=== PATIENT | male | born 1940 | race Caucasian/White ===

== ENCOUNTER 2018-05-11 08:27 | Day surgery (SDC) | payer OTHER ==
--- OUTSIDE RECORDS SUMMARY | 2018-05-11 08:30 | XMS REPORT ---
:1940 [facility] Address [address] [place] [address] Dr. Patel. [address] [place] [address] Care Team Providers Name Role Phone Unavailable Unavailable Unavailable Payers Payer Name Policy Type Policy Number Effective Date Expiration Date Problems This patient has no known problems. Allergies, Adverse Reactions, Alerts Allergy Allergy Status Severity Reaction(s) Onset Inactive Treating Comments Name Type Date Date Clinician No Known DA Active U 2018-02 Allergies -09 00:00:0 0 Medications This patient has no known medications.
[2018-05-11] MEDS ORDERED: CYCLOPENTOLATE 1% OPTH 2 ML ONE (08:49)
[2018-05-11] MEDS ORDERED: NA CHLORIDE 0.9% 500 ML ONE (08:50)
[2018-05-11] MEDS ORDERED: PHENYLEPHRINE 10% OPTH 5ML ONE (08:50)
[2018-05-11] MEDS ORDERED: CYCLOPENTOLATE 1% OPTH 2 ML OPTH ONE ×2 (09:00→09:05)
[2018-05-11] MEDS ORDERED: PHENYLEPHRINE 10% OPTH 5ML OPTH ONE ×2 (09:00→09:05)
[2018-05-11] MEDS: TETRACAINE HCL 0.5% 2ML OPTH ONE ×2 (09:22→09:54)
[2018-05-11] MEDS: BUPIVACAINE 0.25% PF 10 ML VIAL ONE ×2 (09:22→09:55)
[2018-05-11] MEDS: LIDOCAINE 2% MPF 5 ML VIAL ONE ×2 (09:23→09:55)
[2018-05-11] MEDS ORDERED: PROPOFOL 200 MG/20 ML VIAL IV ONE (09:28)
[2018-05-11] MEDS ORDERED: NS 0.9% VIAL 10 ML ONE (09:56)
[2018-05-11] MEDS ORDERED: BALANCED SALT IRRIG PLAIN 500 ML BTL IRR ONE (09:56)
[2018-05-11] MEDS ORDERED: EPINEPHRINE/PF 1 MG/ML AMP ONE (09:56)
[2018-05-11] MEDS ORDERED: MOXIFLOXACIN HCL 10 DROPS/ML **OR USE OPTH ONE (09:57)
[2018-05-11] MEDS ORDERED: DUOVISC 1 KIT OPTH ONE (09:57)
[2018-05-11] MEDS ORDERED: FENTANYL CITR 100 MCG/2 ML ONE (10:12)
--- NOTE | 2018-05-11 10:43 | P.BOP ---
Preoperative diagnosis: Nuclear sclerotic cataract OS Postoperative diagnosis: Same Primary procedure: Phacoemulsification with IOL OS Estimated blood loss: None Anesthesia: Local (Subtenon's infusion with anesthesia for cataract surgery) Complications: None Implants: SN60WF +20.0 Transferred to: Other (Day surgery) Condition: Good
--- NOTE | 2018-05-11 21:24 | OP ---
Date of Procedure: 05/11/2018 Surgeon: Allie Saravia MD Anesthesiologist: Saw Lynch CRNA and Boyd Samuels MD. Preoperative Diagnosis: Nuclear sclerotic cataract, left eye. Operation Performed: Phacoemulsification with intraocular lens implant, left eye. Anesthesia: Per cataract surgery. Complications: None. Description Of Procedure: In day surgery, the patient was prepped with Betadine and draped. A conju nctival incision was made in the inferior nasal quadrant with Judy scissors. A sub-Tenon block c onsisting of a 1:1 mixture of 2% Xylocaine and 0.25% bupivacaine was placed through the conjunctival incision with a blunt cannula. A Honan balloon was placed over the eye and the patient was transferr ed to the operating room. In the operating room the patient was prepped and draped in the usual sterile fashion for ophthalmic surgery. A lid speculum was placed in the left eye. Two paracentesis sites were made superiorly and inferiorly in the limbal cornea. Viscoat was placed in the anterior chamber and a crescent blade wa s used to make a corneal groove and tunnel, and a keratome was used to enter the anterior chamber. P rovisc was placed in the anterior chamber and a 360 degree capsulotomy was performed with a cystitome . The lens was hydrodissected with BSS and rotated freely. The lens was removed with a stop and cho p technique. 26.08 phaco CDE was used to remove the lens. Residual cortex was removed with the irri gation and aspiration. Provisc was placed in the capsular bag. A SN60WF +20.0 diopter lens was plac ed in the capsular bag without complications. Irrigation and aspiration were used to remove residual viscoelastic. The paracentesis sites were hydrated with BSS. The wound and paracentesis sites were inspected and found to be watertight. Vigamox 0.07 cc was placed intracamerally at the end of the p rocedure. The eye was irrigated with balanced salt solution. The eye was patched with a soft cotton patch and Wong metal shield. The patient was returned to day surgery in good condition. Comments: The surgery was performed at the head of the bed rather than temporally. 1:5000 epinephri ne was placed in the anterior chamber prior to Viscoat. Discharge Instructions: Mr. Albrecht is discharged to home in good condition and is to follow up w madison Saravia in the morning. NICKOLAS/PALMA Voice ID: [id number] Report ID: [id number]
== END 2018-05-11 11:08 | disposition home or self-care (01) ==
LOC: OR 08:27
PROVIDERS: ATTEND Ophthalmology Retina Specialist
PROC: 08RK3JZ Replacement of Left Lens with Synthetic Substitute, Percutaneous Approach (ICD-10-PCS; principal; 2018-05-11 09:50)
DX: H25.12 Age-related nuclear cataract, left eye (principal); I10 Essential (primary) hypertension; E78.00 Pure hypercholesterolemia, unspecified; I25.10 Atherosclerotic heart disease of native coronary artery without angina pectoris; Z95.1 Presence of aortocoronary bypass graft; Z87.891 Personal history of nicotine dependence; Z83.518 Family history of other specified eye disorder; Z82.49 Family history of ischemic heart disease and other diseases of the circulatory system; Z83.3 Family history of diabetes mellitus
CPT/HCPCS: 66984; J0171; J2704; J3010; V2630

== ENCOUNTER 2021-09-08 14:17 | Emergency (ER) | payer OTHER ==
--- OUTSIDE RECORDS SUMMARY | 2021-09-08 14:19 | XMS REPORT | Continuity of Care Document ---
:1940 Author Organization [facility] t Address [address] [place] [address] Dr. Patel. [address] [place] [address] Care Team Providers Name Role Phone Unavailable Unavailable Unavailable Payers Payer Name Policy Type Policy Number Effective Date Expiration Date S ource Problems This patient has no known problems. Allergies, Adverse Reactions, Alerts Allergy Allergy Status Severity Reaction(s) Onset Inactive Treating Comm ents Source Name Type Date Date Clinician No Known DA Active U 2017-04 [facility] Allergie 04-22 [facility] 00:00: [address] Medications This patient has no known medications. Procedures This patient has no known procedures. Results This patient has no known results.
[2021-09-08] MEDS ORDERED: FENTANYL CITR 100 MCG/2 ML ONE (15:12)
[2021-09-08 15:31] LABS: Absolute Lymphocytes (CBC) 0.8 K/uL (0.7-4.9); Hematocrit 26.4 % (39.6-49.0); Lymphocytes % 7.2 % (15.3-44.8); MPV 7.5 fL (7.6-11.3); RBC Red Blood Cell Count 2.84 M/uL (4.33-5.43)
[2021-09-08 15:48] LABS: Potassium 4.7 mmol/L (3.5-5.1)
--- NOTE | 2021-09-08 16:31 | RAD REPORT ---
EXAM DESCRIPTION: CT - Head C Spine Cap Wo Con - 09/08/2021 4:08 pm TECHNIQUE: Computed axial tomography of the head and cervical spine was obtained. Coronal and sagitt al reconstruction was performed Computed axial tomography of the chest, abdomen and pelvis was obtained. Contrast was not requested. All CT scans are performed using dose optimization technique as appropriate and may include automated exposure control or mA/KV adjustment according to patient size. CLINICAL HISTORY: Head and neck injury with chest and abdominal pain status post fall COMPARISON: none FINDINGS: An intracranial bleed is not seen. The ventricles are normal in caliber. An extra-axial fluid collection is not noted. . Fluid within the sinuses/mastoids is not seen. A cervical fracture is not seen. No dislocation is noted. The evaluation of mediastinum, franco, vessels, solid organs and bowel are limited secondary to the lac k of contrast administration. A mediastinal hematoma is not noted. A pleural effusion is not seen. A lung contusion is not present. 9 millimeter partially calcified left lower lobe nodule The liver,spleen, pancreas, adrenals,kidneys and bladder do not demonstrate a traumatic injury. 3.4 centimeter abdominal aortic aneurysm. Mildly to moderately displaced left humeral neck fracture IMPRESSION: 1. No acute intracranial abnormality is seen. 2. A cervical fracture is not visualized. If the patient continues have symptoms to suggest intracran ial/spinal cord pathology MRI be recommended 3. Mildly to moderately displaced left humeral neck fracture 4. A 3.4 centimeter abdominal aortic aneurysm 5. 9 millimeter partially calcified left lung nodule likely benign. A followup CT chest in 6 months recommended for re-evaluation
--- NOTE | 2021-09-08 16:38 | RAD REPORT ---
EXAM DESCRIPTION: RAD - Humerus Left - 09/08/2021 3:59 pm CLINICAL HISTORY: Left arm pain status post fall FINDINGS: Mildly to moderately displaced oblique fracture humeral neck No dislocation
--- NOTE | 2021-09-08 16:38 | RAD REPORT ---
EXAM DESCRIPTION: RAD - Clavicle Left - 09/08/2021 3:59 pm CLINICAL HISTORY: Shoulder pain FINDINGS: No fracture dislocation seen involving the left clavicle
--- NOTE | 2021-09-08 17:57 | EDPHYS ---
Physician Documentation [facility] Name: Rosendo Albrecht Age: 81 yrs Sex: Male : 1940 Arrival Date: 09/08/2021 Time: 14:21 Bed 12 Private MD: ED Physician Garrett Godoy HPI: 09/08 15:10 This 81 yrs old Male presents to ER via Ambulatory with complaints of Fall Injury, Arm cp Injury. 15:10 Details of fall: The patient fell from an upright position, while walking, and struck a cp grass-covered surface. Onset: The symptoms/episode began/occurred just prior to arrival. 15:10 Associated injuries: The patient sustained left upper arm, decreased range of motion, cp obvious fracture, painful injury. 15:10 Severity of symptoms: in the emergency department the symptoms are unchanged, despite cp home interventions. Historical: - Allergies: 14:30 No Known Allergies; ld1 - Home Meds: 14:30 None [Active]; ld1 - PMHx: 14:30 Heart bypass; ld1 - Immunization history:: Adult Immunizations up to date, Client reports having NOT received the Covid vaccine. - Social history:: Smoking status: Patient denies any tobacco usage or history of. Patient/guardian denies using alcohol. ROS: 15:15 Constitutional: Negative for body aches, chills, fever, poor PO intake. cp 15:15 Neck: Negative for pain with movement, pain at rest, stiffness. cp 15:15 Cardiovascular: Negative for chest pain, edema, palpitations. cp 15:15 Respiratory: Negative for cough, shortness of breath, wheezing. 15:15 Abdomen/GI: Negative for abdominal pain, nausea, vomiting, and diarrhea, constipation, black/tarry stool, rectal bleeding. 15:15 Eyes: Negative for injury, pain, redness, and discharge. cp 15:15 Back: Negative for radiated pain. 15:15 MS/extremity: Positive for injury or acute deformity, decreased range of motion, pain, of the left upper arm, Negative for paresthesias. 15:15 Neuro: Negative for altered mental status, dizziness, headache, loss of consciousness, syncope, weakness. 15:15 All other systems are negative. Exam: 15:20 Constitutional: The patient appears in no acute distress, alert, awake, cp non-diaphoretic, non-toxic, well developed, frail. 15:20 Head/Face: Normocephalic, atraumatic. cp 15:20 Eyes: Periorbital structures: appear normal, Pupils: equal, round, and reactive to light and accomodation, Extraocular movements: intact throughout, Conjunctiva: normal, no exudate, no injection, Sclera: no appreciated abnormality, Lids and lashes: appear normal, bilaterally. 15:20 ENT: External ear(s): are unremarkable, Nose: is normal, Mouth: Lips: moist, Oral mucosa: moist, Posterior pharynx: Airway: no evidence of obstruction, patent. 15:20 Neck: C-spine: vertebral tenderness, is not appreciated, crepitus, is not appreciated, ROM/movement: is normal, is supple, without pain, no range of motions limitations. 15:20 Chest/axilla: Inspection: normal, Palpation: is normal, no crepitus, no tenderness. 15:20 Cardiovascular: Rate: normal, Rhythm: regular, Edema: is not appreciated, JVD: is not appreciated. 15:20 Respiratory: the patient does not display signs of respiratory distress, Respirations: normal, no use of accessory muscles, no retractions, labored breathing, is not present, Breath sounds: are clear throughout, no decreased breath sounds, no stridor, no wheezing. 15:20 Abdomen/GI: Inspection: abdomen appears normal, Palpation: abdomen is soft and non-tender, in all quadrants, rebound tenderness, is not appreciated, involuntary guarding, is not appreciated. 15:20 Back: pain, is absent, ROM is normal, vertebral tenderness, is not appreciated. 15:20 Musculoskeletal/extremity: Extremities: grossly normal except: noted in the left upper arm: decreased ROM, deformity, pain, ROM: limited passive range of motion due to pain, in the left upper arm, Pulses: noted to be 2+ in the right radial artery and left radial artery, the left upper arm Severe pain noted. 15:20 Neuro: Orientation: to person, place \T\ time. Mentation: is normal, Motor: moves all fours, strength is normal. Vital Signs: 14:29 BP 163 / 65; Pulse 66; Resp 18; Temp 98.6(TE); Pulse Ox 100% on R/A; Weight 54.43 kg; ld1 Height 5 ft. 6 in. (167.64 cm); Pain 8/10; 17:56 BP 167 / 65; Pulse 65; Resp 15; Pulse Ox 100% ; jl7 14:29 Body Mass Index 19.37 (54.43 kg, 167.64 cm) ld1 Procedures: 18:00 Splinting: Splint applied to left upper arm using sling, applied by nurse. Examined by cp me, post splint application: neurovascular intact, Patient tolerated well. MDM: 17:28 Patient medically screened. cp 17:55 Data reviewed: vital signs, nurses notes, lab test result(s), radiologic studies, CT cp scan, plain films. 17:55 Test interpretation: by ED physician or midlevel provider: plain radiologic studies. cp Counseling: I had a detailed discussion with the patient and/or guardian regarding: the historical points, exam findings, and any diagnostic results supporting the discharge/admit diagnosis, the presence of at least one elevated blood pressure reading (>120/80) during this emergency department visit, lab results, radiology results, the need for outpatient follow up, for definitive care, a family practitioner, a orthopedic surgeon, to return to the emergency department if symptoms worsen or persist or if there are any questions or concerns that arise at home. Response to treatment: the patient's symptoms have markedly improved after treatment, and as a result, I will discharge patient. 17:55 Special discussion: Aortic aneurysm, elevated creatine, anemia and need for f/u with family physician. 09/08 15:07 Order name: Basic Metabolic Panel; Complete Time: 16:52 09/08 16:52 Interpretation: Normal except: NA 130; GLUC 163; BUN 40; CRE 1.92; GFR 35. 09/08 15:07 Order name: CBC with Diff; Complete Time: 16:52 09/08 16:53 Interpretation: Normal except: WBC 11.0; RBC 2.84; HGB 9.0; HCT 26.4; MCV 92.9; MPV cp 7.5; ILEANA% 87.1; LYM% 7.2; NEUT A 9.5. 09/08 14:33 Order name: XRAY Clavicle LEFT; Complete Time: 16:52 1 09/08 16:53 Interpretation: Report reviewed. 09/08 15:07 Order name: Type And Screen 09/08 17:06 Order name: Antibody Identification [facility] 09/08 15:07 Order name: Labs collected and sent; Complete Time: 15:19 09/08 15:07 Order name: XRAY Humerus LEFT; Complete Time: 16:52 09/08 16:53 Interpretation: Report reviewed. 09/08 15:55 Order name: Head C Spine Cap Wo Con; Complete Time: 16:52 EDAZ 09/08 16:56 Interpretation: Report reviewed. 09/08 17:35 Order name: Sling; Complete Time: 17:56 09/08 17:36 Order name: Misc. Order: ambulate patient; Complete Time: 17:56 cp Administered Medications: 15:18 Drug: fentaNYL (PF) 25 mcg Route: IVP; Site: right forearm; ld1 17:56 Follow up: Response: No adverse reaction; Pain is decreased jl7 Disposition: 09/09 07:40 Co-signature as Attending Physician, Garrett Godoy MD I agree with the assessment and kdr plan of care. Disposition Summary: 09/08/21 17:56 Discharge Ordered Location: Home cp Problem: new cp Symptoms: have improved cp Condition: Stable cp Diagnosis - 2-part displaced fracture of surgical neck of left humerus cp - Fall on same level from slipping, tripping and stumbling without subsequent cp striking against object Followup: cp - With: Todd Barbosa MD - When: 2 - 3 days - Reason: left humerus fracture Discharge Instructions: - Discharge Summary Sheet cp - Fall Prevention in the Home, Adult cp - Humerus Fracture Treated With Immobilization cp Forms: - Medication Reconciliation Form cp - Thank You Letter cp - Antibiotic Education cp - Prescription Opioid Use cp Prescriptions: - Tylenol-Codeine #3 300 mg-30 mg Oral - take 2 tablet by ORAL route every 8-10 hours; 20 tablet; Refills: 0, Product cp Selection Permitted Signatures: Dispatcher [employer] [facility] Garrett Godoy MD MD kdr Page, Corey, PA PA cp Kate Stevens, RN RN ld1 Madelaine Loredo RN jl7 Corrections: (The following items were deleted from the chart) 09/08 14:31 14:30 PMHx: None; ld1 ld1 15:16 14:33 Shoulder Left 2 View+RAD.RAD.BRZ ordered. EDMS EDMS 15:55 15:11 Head C Spine CAP W Con+CT.RAD.BRZ ordered. EDMS EDMS
--- NOTE | 2021-09-08 17:57 | ER ---
Nurse's Notes [facility] Name: Rosendo Albrecht Age: 81 yrs Sex: Male : 1940 Arrival Date: 09/08/2021 Time: 14:21 Bed 12 Private MD: Diagnosis: 2-part displaced fracture of surgical neck of left humerus;Fall on same level from slipping, tripping and stumbling without subsequent striking against object Presentation: 09/08 14:29 Chief complaint: Patient states: 1230 today I was outside in the backyard, I tripped ld1 and fell in a hole. Pt fell on left side - c/o left shoulder pain, left upper arm pain. Denies LOC, no blood thinners. Did not hit head. Coronavirus screen: At this time, the client does not indicate any symptoms associated with coronavirus-19. Ebola Screen: No symptoms or risks identified at this time. Initial Sepsis Screen: Does the patient meet any 2 criteria? No. Patient's initial sepsis screen is negative. Does the patient have a suspected source of infection? No. Patient's initial sepsis screen is negative. Risk Assessment: Do you want to hurt yourself or someone else? Patient reports no desire to harm self or others. Onset of symptoms was September 08, 2021. 14:29 Method Of Arrival: Ambulatory ld1 14:29 Acuity: DILIA 3 ld1 Triage Assessment: 14:30 General: Appears in no apparent distress. comfortable, Behavior is calm, cooperative, ld1 appropriate for age. Pain: Complains of pain in anterior aspect of left shoulder Pain does not radiate. Pain currently is 8 out of 10 on a pain scale. EENT: No signs and/or symptoms were reported regarding the EENT system. Neuro: Level of Consciousness is awake, alert, obeys commands, Oriented to person, place, time, situation. Cardiovascular: Capillary refill < 3 seconds Patient's skin is warm and dry. Respiratory: Airway is patent Respiratory effort is even, unlabored. Musculoskeletal: Swelling present in anterior aspect of left shoulder. Historical: - Allergies: 14:30 No Known Allergies; ld1 - Home Meds: 14:30 None [Active]; ld1 - PMHx: 14:30 Heart bypass; ld1 - Immunization history:: Adult Immunizations up to date, Client reports having NOT received the Covid vaccine. - Social history:: Smoking status: Patient denies any tobacco usage or history of. Patient/guardian denies using alcohol. Screenin:56 Abuse screen: Denies threats or abuse. Denies injuries from another. Nutritional jl7 screening: No deficits noted. Tuberculosis screening: No symptoms or risk factors identified. Fall Risk Fall in past 12 months (25 points). IV access (20 points). Total Mitchell Fall Scale indicates Low Risk Score (25-44 pts). Vital Signs: 14:29 BP 163 / 65; Pulse 66; Resp 18; Temp 98.6(TE); Pulse Ox 100% on R/A; Weight 54.43 kg; ld1 Height 5 ft. 6 in. (167.64 cm); Pain 8/10; 17:56 BP 167 / 65; Pulse 65; Resp 15; Pulse Ox 100% ; jl7 14:29 Body Mass Index 19.37 (54.43 kg, 167.64 cm) ld1 ED Course: 14:21 Patient arrived in ED. ja2 14:21 Milton Jacob PA is PHCP. cp 14:21 Garrett Godoy MD is Attending Physician. cp 14:30 Triage completed. ld1 14:30 Arm band placed on right wrist. ld1 15:19 Type And Screen Sent. ld1 15:19 CBC with Diff Sent. ld1 15:19 Basic Metabolic Panel Sent. ld1 15:19 Inserted saline lock: 20 gauge in right forearm, using aseptic technique. Blood ld1 collected. 15:58 XRAY Clavicle LEFT In Process Unspecified. EDMS 15:58 XRAY Humerus LEFT In Process Unspecified. EDMS 16:10 Head C Spine Cap Wo Con In Process Unspecified. EDMS 17:53 Todd Barbosa MD is Referral Physician. cp 17:56 Madelaine Loredo RN is Primary Nurse. jl7 17:56 Patient has correct armband on for positive identification. jl7 17:56 No provider procedures requiring assistance completed. IV discontinued, intact, jl7 bleeding controlled, No redness/swelling at site. Pressure dressing applied. Administered Medications: 15:18 Drug: fentaNYL (PF) 25 mcg Route: IVP; Site: right forearm; ld1 17:56 Follow up: Response: No adverse reaction; Pain is decreased jl7 Medication: 17:56 VIS not applicable for this client. jl7 Outcome: 17:56 Discharge ordered by . cp 17:56 Discharged to home via wheelchair, with family. jl7 17:56 Condition: stable 17:56 Discharge instructions given to patient, family, Instructed on discharge instructions, follow up and referral plans. medication usage, Demonstrated understanding of instructions, follow-up care, medications, Prescriptions given X 1. 18:14 Patient left the ED. jl7 Signatures: Dispatcher [employer] EDMS Milton Jacob PA PA cp Leal, Jahala RN RN jl7 Kate Stevens RN RN ld1 Macy Jackson Corrections: (The following items were deleted from the chart) 14:31 14:30 PMHx: None; ld1 ld1
[2021-09-08 18:26] VITALS: BP 167/65; TEMP 98.6; O2SAT 100
== END 2021-09-08 18:14 | disposition home or self-care (01) ==
LOC: ER 14:17
DX: S42.222A 2-part displaced fracture of surgical neck of left humerus, initial encounter for closed fracture (principal); W01.0XXA Fall on same level from slipping, tripping and stumbling without subsequent striking against object, initial encounter
CPT/HCPCS: 85025; 80048; 36415; 86900; 86850; 86870; 86901; 70450; 71250; 72125; 73060; 73000; 96374; 99284; J3010

== ENCOUNTER 2021-12-23 19:25 | Emergency (ER) | payer OTHER ==
--- OUTSIDE RECORDS SUMMARY | 2021-12-23 19:28 | XMS REPORT | Continuity of Care Document ---
:1940 Author Organization [facility] t Address [address] [place] [address] Care Team Providers Name Role Phone Steve Gibson Attending Clinician Unavailable Payers Payer Name Policy Type Policy Number Effective Date Expiration Date S ource Problems This patient has no known problems. Allergies, Adverse Reactions, Alerts Allergy Allergy Status Severity Reaction(s) Onset Inactive Treating Comm ents Source Name Type Date Date Clinician No Known DA Active U 2017-04 [facility] Allergie 04-22 [facility] 00:00: [address] Medications This patient has no known medications. Procedures This patient has no known procedures. Encounters Start End Encounter Admission Attending Care Care Encounter Source Date/Time Date/Time Type Type Clinicians Facility Department ID 2021-11-13 Outpatient Gibson, [facility] [id number] Common 10:31:01 Steve [facility] 2021-10-05 Outpatient Gibson [facility] [id number] Common 08:20:03 Steve [facility] 2021-10-04 Outpatient Gibson, [facility] [id number] Common 14:20:02 Steve [facility] 2021-09-17 Outpatient Gibson, [facility] [id number] Common 09:18:03 Steve [facility] 2021-09-14 Outpatient Arthur [facility] [id number] Common 07:49:01 [facility] [id number] [facility] Results This patient has no known results.
[2021-12-23 21:14] LABS: SARS-CoV-2 Antigen Rapid Res Negative (Negative)
--- NOTE | 2021-12-23 21:33 | RAD REPORT ---
EXAM DESCRIPTION: CT - Head C Spine Cap Wo Con - 12/23/2021 9:15 pm CLINICAL HISTORY: Trauma, head and neck injury. Chest, abdomen and pelvis pain. fall COMPARISON: Head C Spine Cap Wo Con dated 09/08/2021 TECHNIQUE: CT head without contrast. CT cervical spine without contrast with coronal and sagittal reformatted images. CT chest, abdomen and pelvis without contrast with coronal and sagittal reformatted images of the spi ne. All CT scans are performed using dose optimization technique as appropriate and may include automated exposure control or mA/KV adjustment according to patient size. FINDINGS: CT HEAD WITHOUT CONTRAST: There is a large left-sided acute on chronic subdural hematoma measuring 19 mm in thickness. There is moderate to large right posterior acute on chronic subdural hematoma measuring 21 mm in thickness. N o midline shift is present. The paranasal sinuses and mastoids are clear. The calvarium is intact. CT CERVICAL SPINE WITHOUT CONTRAST: No fracture or subluxation. The prevertebral soft tissues are normal in thickness.Bilateral carotid atherosclerosis. CT CHEST, ABDOMEN, PELVIS WITHOUT CONTRAST: NOTE: Lack of contrast is a significant limitation in the assessment of trauma related findings. Spec ifically, solid organ, vascular and bowel evaluation is significantly limited. 7 mm nodule is seen the superior segment left lower lobe.The lungs are clear of acute infiltrate or p ulmonary contusion.No pneumothorax or pericardial/pleural fluid. No evidence of intra-abdominal visceral injury, free fluid or free air is seen within the above detai led limitations. 3.6 cm infrarenal abdominal aortic aneurysm. No concerning pelvic findings. Diffuse osteopenia is noted. Mild osteoporotic L1 compression deformity is present, likely subacute i n timeframe. Estimated vertebral body loss is 15%. 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 No midline shift is present. Subacute osteoporotic L1 compression deformity without significant canal compromise. 7 mm nodule superior segment left lower lobe. Recommend follow-up CT chest assessment in 6 months.
[2021-12-23] MEDS ORDERED: NA CHLORIDE 0.9% 100 ML ONE (21:47)
[2021-12-23] MEDS ORDERED: LEVETIRACETAM 500 MG/5 ML VIAL IV ONE (21:47)
--- NOTE | 2021-12-23 21:52 | RAD REPORT ---
EXAM DESCRIPTION: RAD - Chest Single View - 12/23/2021 9:43 pm CLINICAL HISTORY: fall Chest pain. COMPARISON: No comparisons FINDINGS: Portable technique limits examination quality. The lungs are emphysematous but grossly clear. The heart is normal in size. No displaced fractures.St ernotomy wires present. IMPRESSION: COPD.
[2021-12-23 21:56] LABS: Absolute Lymphocytes (CBC) 0.9 K/uL (0.7-4.9); Hematocrit 29.1 % (39.6-49.0); Lymphocytes % 8.7 % (15.3-44.8); MCV 95.4 fL (80-100); MPV 7.2 fL (7.6-11.3); RBC Red Blood Cell Count 3.05 M/uL (4.33-5.43)
--- NOTE | 2021-12-23 22:01 | EDPHYS ---
Physician Documentation [facility] Name: Rosendo Albrecht Age: 81 yrs Sex: Male : 1940 Arrival Date: 12/23/2021 Time: 19:30 Bed 4 Private MD: ED Physician Ethan Smith HPI: 12/23 21:22 This 81 yrs old Male presents to ER via Wheelchair with complaints of Fall Injury. snw 21:22 Details of fall: The patient fell from an upright position, while walking. Onset: The snw symptoms/episode began/occurred acutely, and became worse. Associated injuries: The patient sustained injury to the head, contusion. Severity of symptoms: At their worst the symptoms were moderate, earlier today. pt has been falling frequently. Bumped top of head 3-4 days ago, fell x 3 yesterday. Today pt has not been able to ambulate. The patient has been recently seen by a physician: Dr. Rutherford (janitor cleaner) a janitor cleaner, in the office, in placed on Losartan, Atorvastatin, and another medication that family cannot name. Historical: - Allergies: 19:42 No Known Allergies; ha1 - Immunization history:: Adult Immunizations up to date. - Social history:: Smoking status: Patient/guardian denies using tobacco, but has a distant history of tobacco abuse. - Immunization history: Last tetanus immunization: unknown. ROS: 19:59 Eyes: Negative for injury, pain, redness, and discharge, ENT: Negative for injury, snw pain, and discharge, Neck: Negative for injury, pain, and swelling. 19:59 Respiratory: Negative for shortness of breath, cough, wheezing, and pleuritic chest pain, Abdomen/GI: Negative for abdominal pain, nausea, vomiting, diarrhea, and constipation, Back: Negative for injury and pain, : Negative for injury, bleeding, discharge, and swelling, MS/Extremity: Negative for injury and deformity, Skin: Negative for injury, rash, and discoloration, Psych: Negative for depression, anxiety, suicide ideation, homicidal ideation, and hallucinations. 19:59 Constitutional: Positive for increased falls. 19:59 Cardiovascular: Positive for family states pt c/o chest pain yesterday. 19:59 Neuro: Positive for gait disturbance, weakness, cannot ambulate. Exam: 19:55 Head/Face: Normocephalic, atraumatic. snw 19:55 Neck: Trachea midline, no thyromegaly or masses palpated, and no cervical lymphadenopathy. Supple, full range of motion without nuchal rigidity, or vertebral point tenderness. No Meningismus. Chest/axilla: Normal chest wall appearance and motion. Nontender with no deformity. No lesions are appreciated. 19:55 Cardiovascular: Regular rate and rhythm with a normal S1 and S2. No gallops, murmurs, or rubs. Normal PMI, no JVD. No pulse deficits. Respiratory: Lungs have equal breath sounds bilaterally, clear to auscultation and percussion. No rales, rhonchi or wheezes noted. No increased work of breathing, no retractions or nasal flaring. Abdomen/GI: Soft, non-tender, with normal bowel sounds. No distension or tympany. No guarding or rebound. No evidence of tenderness throughout. Back: severe kyphosis Skin: Warm, dry with normal turgor. Normal color with no rashes, no lesions, and no evidence of cellulitis. MS/ Extremity: Pulses equal, no cyanosis. Neurovascular intact. Full, normal range of motion. 19:55 Constitutional: The patient appears awake, emaciated, frail, lethargic, listless, pale. 19:55 Eyes: Conjunctiva: pale, bilaterally. 19:55 Neuro: Gait: needs assistance, Triage nurse and I used belt to hoist pt onto stretcher, family states this is pt's normal cognition but he fell yesterday 3 times and is not able to stand today. Vital Signs: 19:34 BP 117 / 84; Pulse 73; Resp 18 S; Temp 97.9; Weight 46.27 kg; Height 5 ft. 7 in. ha1 (170.18 cm); 20:29 BP 128 / 70; Pulse 71; Pulse Ox 99% on R/A; aa9 21:31 BP 121 / 70; Pulse 69; Resp 16 S; Pulse Ox 100% on R/A; as6 19:34 Body Mass Index 15.98 (46.27 kg, 170.18 cm) ha1 [place] Coma Score: 21:00 Eye Response: to voice(3). Verbal Response: confused(4). Motor Response: obeys as6 commands(6). Total: 13. 22:10 Eye Response: to voice(3). Verbal Response: confused(4). Motor Response: obeys as6 commands(6). Total: 13. Trauma Score (Adult): 22:10 Eye Response: to voice(0); Verbal Response: confused(1); Motor Response: obeys as6 commands(2); Systolic BP: > 89 mm Hg(4); Respiratory Rate: 10 to 29 per min(4); [place] Score: 13; Trauma Score: 11 MDM: 19:55 Patient medically screened. snw 21:28 Data reviewed: vital signs, nurses notes. Data interpreted: Pulse oximetry: on room air snw is 99 %. Interpretation: normal. Counseling: I had a detailed discussion with the patient and/or guardian regarding: the historical points, exam findings, and any diagnostic results supporting the discharge/admit diagnosis, radiology results, Dr. Smith in the room as results of CT show multiple subdural bleeds (old and new) a possible epidural bleed - no herniation as pt has a large amount of atrophy pre-trauma. 21:34 Physician consultation: Dr Ott was contacted at 21:34, speaking to Dr. Smith re: snw transfer. Recommends ground transfer if no epidural. Dr. Alarcon (radiology) states no epidural, no midline shift, + acute blood with several subdural bleeds. 21:36 ED course: Discussed case with Dr Duarte and he accepts patient. If subdurals patient ms3 can be sent via ground. If epidural component or questionable plan to fly patient to [facility].. 12/23 20:06 Order name: SARS RAPID snw 12/23 20:43 Order name: Basic Metabolic Panel w 12/23 20:43 Order name: CBC with Diff w 12/23 20:43 Order name: LFT's w 12/23 20:43 Order name: Magnesium w 12/23 20:43 Order name: NT PRO-BNP w 12/23 20:06 Order name: CT Traumagram (Head C Spine CAP wo con) w 12/23 20:43 Order name: PT-INR w 12/23 20:43 Order name: Troponin HS w 12/23 20:43 Order name: XRAY Chest (1 view) w 12/23 21:14 Order name: SARS-COV-2 Antigen Rapid EDMS 12/23 21:34 Order name: CT EDMS 12/23 21:53 Order name: RAD EDMS 12/23 22:03 Order name: CBC with Automated Diff EDMS 12/23 20:43 Order name: EKG; Complete Time: 20:45 snw 12/23 20:43 Order name: Cardiac monitoring; Complete Time: 21:30 snw 12/23 20:43 Order name: EKG - Nurse/Tech; Complete Time: 21:30 snw 12/23 20:43 Order name: IV Saline Lock; Complete Time: 21:31 snw 12/23 20:43 Order name: Labs collected and sent; Complete Time: 21:31 snw 12/23 20:43 Order name: O2 Per Protocol; Complete Time: 21:31 snw 12/23 20:43 Order name: O2 Sat Monitoring; Complete Time: 21:31 snw Administered Medications: 21:45 Drug: Keppra (levETIRAcetam) 20 mg/kg Route: IV; Rate: calculated rate; Site: left as6 antecubital; 22:09 Follow up: Response: No adverse reaction; IV Status: Completed infusion; IV Intake: as6 100ml Disposition: 21:27 PA/APPLIANCE ASSEMBLER's history reviewed, patient interviewed, and examined. HPI: 81-year-old male ms3 presents status post multiple falls and 3 falls yesterday with decreased ability to ambulate. Patient's family states patient's grandson had a left patient and put him in the car to come to the emergency department. My personal exam of patient reveals: Patient is alert, in no apparent distress. Heart rate and rhythm are regular without murmurs rubs or gallops. Lungs are clear to auscultation bilaterally. Back is significant for severe kyphosis. Scalp with hematoma on the top and contusion. 21:36 PA/APPLIANCE ASSEMBLER's history reviewed, patient interviewed, and examined. I agree with assessment ms3 and care plan and confirm the diagnosis (es) above. Disposition Summary: 12/23/21 22:01 Transfer Ordered Transfer Location: [facility] snw Reason: Higher level of care snw Condition: Serious snw Problem: new snw Symptoms: have worsened snw Accepting Physician: Dr. Ott(12/23/21 22:16) as6 Diagnosis - Traumatic subdural hemorrhage snw Discharge Instructions: - Discharge Summary Sheet aa9 Forms: - Medication Reconciliation Form snw - SBAR form aa9 Critical care time excluding procedures: 21:35 Critical care time: Bedside Care: 35 minutes, Consultation: 10 minutes, Family ms3 Intervention: 10 minutes. Total time: 55 minutes Signatures: Dispatcher [employer] EDTeri Dougherty, MICHELLE-C SUPERVISOR PHOTOSTAT-Ethan Carter DO DO ms3 Saud Gonzalez RN RN as6 Nicolle Saavedra RN RN ha1 Corrections: (The following items were deleted from the chart) 19:43 19:42 PMHx: heart bypass; ha1 ha1 22:16 22:01 Dr. Namrata day as6
--- NOTE | 2021-12-23 22:01 | ER ---
Nurse's Notes [facility] Name: Rosendo Albrecht Age: 81 yrs Sex: Male : 1940 Arrival Date: 12/23/2021 Time: 19:30 Bed 4 Private MD: Diagnosis: Traumatic subdural hemorrhage Presentation: 12/23 19:34 Chief complaint: Spouse and/or significant other states: fell three times yesterday. ha1 today I can't not getting up to walk. Chief complaint: Spouse and/or significant other states: had chest pain yesterday but not today. Coronavirus screen: Vaccine status: Patient reports being unvaccinated. Ebola Screen: No symptoms or risks identified at this time. Risk Assessment: Do you want to hurt yourself or someone else? Patient reports no desire to harm self or others. Onset of symptoms was December 22, 2021. 19:34 Method Of Arrival: Wheelchair ha1 19:34 Acuity: DILIA 3 ha1 19:41 Initial Sepsis Screen: Does the patient meet any 2 criteria? No. Patient's initial ha1 sepsis screen is negative. Does the patient have a suspected source of infection? No. Patient's initial sepsis screen is negative. 22:10 Care prior to arrival: None. Mechanism of Injury: Fall from standing position. Trauma as6 event details: Injury occurred in the [facility]. Triage Assessment: 19:42 General: Appears in no apparent distress. slender, Behavior is calm, quiet. ha1 Trauma Activation: Not Applicable Physician: ED Physician; Name: ; Notified At: ; Arrived At: Physician: General Surgeon; Name: ; Notified At: ; Arrived At: Physician: Radiology; Name: ; Notified At: ; Arrived At: Physician: Respiratory; Name: ; Notified At: ; Arrived At: Physician: Lab; Name: ; Notified At: ; Arrived At: Historical: - Allergies: 19:42 No Known Allergies; ha1 - Immunization history:: Adult Immunizations up to date. - Social history:: Smoking status: Patient/guardian denies using tobacco, but has a distant history of tobacco abuse. - Immunization history: Last tetanus immunization: unknown. Screenin:32 Abuse screen: Denies threats or abuse. Denies injuries from another. Nutritional as6 screening: No deficits noted. Tuberculosis screening: No symptoms or risk factors identified. Fall Risk Fall in past 12 months (25 points). Total Mitchell Fall Scale indicates Low Risk Score (25-44 pts). Side Rails Up X 2 Family Present and informed to notify staff if they need to leave bedside. Primary Survey: 21:32 NO uncontrolled hemorrhage observed. A: The client responds to verbal stimuli. Airway: as6 patent. Breathing/Chest: Spontaneous respiratory effort, equal unlabored respirations, breath sounds clear bilaterally, regular pattern, symmetrical chest rise and fall. Circulation: No external hemorrhage present. Regular and strong central pulse, skin warm/dry/normal color. Exposure/Environment: A warming method has been applied: A warm blanket has been provided to the patient. 22:10 Disability Pupils are equal, round, reactive to light and accommodation. Client as6 responds to verbal stimuli. Reassessment Breathing: Spontaneous respiratory effort, equal unlabored respirations, breath sounds clear bilaterally, regular pattern with symmetrical chest rise and fall. Disability: Pupils Pupils are equal, round, reactive to light and accomodation. Verbal stimuli. Assessment: 20:28 General: Appears uncomfortable, slender, Behavior is cooperative, quiet. Pain: aa9 Complains of pain in generalized Pain currently is 4 out of 10 on a pain scale. Neuro: Level of Consciousness is awake, alert, obeys commands, Oriented to person, place, time, situation, Hole Digger are equal bilaterally. Respiratory: Airway is patent Trachea deviated to right Respiratory effort is even, unlabored, Respiratory pattern is regular, symmetrical. 21:55 Reassessment: attempted to call report. aa9 22:08 Reassessment: attempted to call report. aa9 22:24 General: report called to Page . aa9 Vital Signs: 19:34 BP 117 / 84; Pulse 73; Resp 18 S; Temp 97.9; Weight 46.27 kg; Height 5 ft. 7 in. ha1 (170.18 cm); 20:29 BP 128 / 70; Pulse 71; Pulse Ox 99% on R/A; aa9 21:31 BP 121 / 70; Pulse 69; Resp 16 S; Pulse Ox 100% on R/A; as6 19:34 Body Mass Index 15.98 (46.27 kg, 170.18 cm) ha1 [place] Coma Score: 21:00 Eye Response: to voice(3). Verbal Response: confused(4). Motor Response: obeys as6 commands(6). Total: 13. 22:10 Eye Response: to voice(3). Verbal Response: confused(4). Motor Response: obeys as6 commands(6). Total: 13. Trauma Score (Adult): 22:10 Eye Response: to voice(0); Verbal Response: confused(1); Motor Response: obeys as6 commands(2); Systolic BP: > 89 mm Hg(4); Respiratory Rate: 10 to 29 per min(4); [place] Score: 13; Trauma Score: 11 ED Course: 19:30 Patient arrived in ED. ag3 19:40 Teri Murrell FNP-C is PHCP. snw 19:40 Ethan Smith DO is Attending Physician. snw 19:41 Triage completed. ha1 19:42 Arm band placed on right wrist. ha1 19:52 Saud Gonzalez, NIKHIL is Primary Nurse. as6 20:35 SARS RAPID Sent. aa9 21:22 Initiated a transfer with Dominic from [facility] Transfer [place]. mw2 21:[address] Smith with the Doctor from [facility]. mw2 21:31 Inserted saline lock: 18 gauge in left antecubital area, using aseptic technique. Blood as6 collected. 21:32 Call light in reach. Side rails up X2. as6 21:33 Patient maintains SpO2 saturation greater than 95% on room air. Thermoregulation: warm as6 blanket given to patient. 21:40 Administrative approval given by Dominic Haque/ patient has been accepted to [address] to bed 7511/ Dr. Duarte accepted the patient in transfer/report to be called to [phone]. 22:09 No provider procedures requiring assistance completed. Patient transferred, IV remains as6 in place. 12/24 00:37 CT In Process Unspecified. EDMS 00:44 RAD In Process Unspecified. EDMS Administered Medications: 12/23 21:45 Drug: Keppra (levETIRAcetam) 20 mg/kg Route: IV; Rate: calculated rate; Site: left as6 antecubital; 22:09 Follow up: Response: No adverse reaction; IV Status: Completed infusion; IV Intake: as6 100ml Medication: 22:09 VIS not applicable for this client. as6 Intake: 22:09 IV: 100ml; Total: 100ml. as6 22:10 IV: 100ml (IV Fluid); Total: 200ml. as6 Outcome: 22:01 ER care complete, transfer ordered by . snw 22:09 Transferred by ground EMS to [facility], Transfer form completed. X-rays sent as6 w/ patient. 22:09 Condition: stable 22:09 Patient's length of stay in the Emergency Department was greater than 2 hours. pending transfer Patient's length of stay extended due to 22:16 Patient left the ED. as6 Signatures: Dispatcher [employer] EDMS Teri Murrell, MICHELLE-C ENDS DOWN CHECKER-CsnRaul Walter mw2 Alva Vance ag3 Saud Gonzalez RN RN as6 Yumiko Waite RN RN aa9 Nicolle Saavedra, NIKHIL RN ha1 Corrections: (The following items were deleted from the chart) 19:43 19:42 PMHx: heart bypass; ha1 ha1 21:52 21:22 Initiated a transfer with Reza from [facility] mw2 mw2
[2021-12-23 22:19] LABS: Protime INR 1.12
[2021-12-23 22:39] LABS: Albumin 3.6 g/dL (3.4-5.0); Bilirubin Direct 0.3 mg/dL (0-0.2); Bilirubin Total 0.8 mg/dL (0.2-1.0); Magnesium 2.4 mg/dL (1.8-2.4); Potassium 5.5 mmol/L (3.5-5.1); Protein, Total 7.9 g/dL (6.4-8.2)
[2021-12-23 22:40] LABS: Troponin High Sensitivity 93.8 pg/mL (<58.9)
[2021-12-23 23:56] VITALS: TEMP 97.9
[2021-12-24 00:25] VITALS: BP 121/70; O2SAT 100
--- NOTE | 2021-12-24 15:07 | EKG ---
Test Date: 2021-12-23 Test Time: 19:43:01 Learning Support Specialist: EDGARDO MEASUREMENT RESULTS: Intervals: Rate: 76 DE: 150 QRSD: 78 QT: 424 QTc: 477 [place]: P: DE: 150 QRS: 18 T: 166 INTERPRETIVE STATEMENTS: Normal sinus rhythm Septal infarct, age undetermined T wave abnormality, consider inferolateral ischemia Abnormal ECG No previous ECG available for comparison Electronically Signed On 12-24-21 15:06:36 CDT by Azeem Zheng
== END 2021-12-23 22:16 | disposition short-term general hospital (02) ==
LOC: ER 19:25
DX: S06.5X0A Traumatic subdural hemorrhage without loss of consciousness, initial encounter (principal); W18.30XA Fall on same level, unspecified, initial encounter; Z20.822 Contact with and (suspected) exposure to COVID-19
CPT/HCPCS: 96365; 93005; 85025; 80048; 36415; 83735; 85610; 80076; 84484; 83880; 70450; 71250; 72125; 71045; 99285; 87811; J1953